=== PATIENT | female | born 1965 ===

== ENCOUNTER 2018-05-17 18:40 | Emergency (ER) | payer MEDICAID ==
[2018-05-17 18:57] VITALS: O2SAT 99
--- NOTE | 2018-05-17 19:19 | ED PDOC ---
Lower Extremity Pain/Injury Time Seen by Provider: 05/17/18 19:17 Chief Complaint (Nursing): Lower Extremity Problem/Injury Chief Complaint (Provider): Lower Extremity Problem/Injury History Per: Patient, Family (daughter and ) History/Exam Limitations: no limitations Onset/Duration Of Symptoms: Days (x 1 month ) Current Symptoms Are (Timing): Still Present Additional Complaint(s): 52 year old female with right leg pain for the last month. Patient reports she saw her PMD, Dr. Herring for the same symptoms. He gave her prescriptions for an x-ray and MRI which she was not able to fill. Pt requesting Xray today so that she can be approved for her MRI. Reports that she is using a cane to ambulate. 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 She has tried Bengay and Percocet without relief. Her last dose of Percocet was today 10 am. Otherwise denies falls, trauma, back pain, chest pain, numbness, weakness, paresthesias. PMD: Dr. Herring Past Medical History Reviewed: Historical Data, Nursing Documentation, Vital Signs Vital Signs: Last Vital Signs Temp 98.3 F 05/17/18 18:54 Pulse 84 05/17/18 18:54 Resp 18 05/17/18 18:54 BP 139/88 05/17/18 18:54 Pulse Ox 99 05/17/18 18:54 - Medical History PMH: Anxiety, Arthritis (left foot plantar pain), Hyperthyroidism Denies: Chronic Kidney Disease - Surgical History Surgical History: No Surg Hx - Family History Family History: States: Unknown Family Hx - Home Medications Home Medications: Ambulatory Orders Medication Instructions Recorded Alprazolam [Xanax] 0.25 mg PO TID 04/24/15 Oxycodone HCl/Acetaminophen 5 - 325 mg PO Q6 PRN 04/24/15 [Percocet 325 mg-5 mg] Lidocaine 5% [Lidoderm] 1 ea TD Q12H PRN #10 patch 05/17/18 Naproxen 500 mg PO DAILY PRN #30 tablet 05/17/18 - Allergies Allergies/Adverse Reactions: Allergies Allergy/AdvReac Type Severity Reaction Status Date / Time No Known Allergies Allergy Verified 02/04/17 12:43 Review of Systems ROS Statement: Except As Marked, All Systems Reviewed And Found Negative Constitutional: Negative for: Fever, Chills Eyes: Negative for: Vision Change Cardiovascular: Negative for: Chest Pain Respiratory: Negative for: Cough, Shortness of Breath Gastrointestinal: Negative for: Nausea, Vomiting, Abdominal Pain Genitourinary Female: Negative for: Dysuria, Frequency Musculoskeletal: Positive for: Leg Pain (posterior right knee pain). Negative for: Neck Pain, Back Pain Neurological: Negative for: Weakness, Numbness, Headache, Dizziness Physical Exam - Reviewed Nursing Documentation Reviewed: Yes Vital Signs Reviewed: Yes - Physical Exam Appears: Positive for: Non-toxic Head Exam: Positive for: ATRAUMATIC, NORMAL INSPECTION, NORMOCEPHALIC Skin: Positive for: Normal Color, Warm, Dry Eye Exam: Positive for: EOMI, Normal appearance, PERRL Neck: Positive for: Normal, Painless ROM Cardiovascular/Chest: Positive for: Regular Rate, Rhythm. Negative for: Murmur Respiratory: Positive for: Normal Breath Sounds. Negative for: Respiratory Distress Pulses-Dorsalis Pedis (L): 2+ Pulses-Dorsalis Pedis (R): 2+ Back: Positive for: Normal Inspection Extremity: Positive for: Tenderness (tenderness to the lateral joint line and popliteal fossa of right knee), Capillary Refill (<2s), Other (decreased ROM at right knee secondary to pain; neurovascularly intact). Negative for: Normal ROM, Calf Tenderness, Swelling (or redness) Neurologic/Psych: Positive for: Alert, Oriented. Negative for: Motor/Sensory Deficits - ECG ECG: Positive for: Interpreted By Me, Viewed By Me ECG Rhythm: Positive for: Normal QRS, Sinus Rhythm (normal ) Interpretation Of ECG: normal intervals, no ST elevation or other signs of ischemia Rate: 86 O2 Sat by Pulse Oximetry: 99 (RA) Pulse Ox Interpretation: Normal Medical Decision Making Medical Decision Makin:18 --Toradol 60 mg IM --Right knee x-ray --Right leg venous duplex Right Knee XR normal as read by me and Dr. Duval Pt reports decreased pain after medication. 19:25 Ultrasound will be called in for venous duplex, wait time approximately 1 hour. Patient and family willing to wait. 21:30 Duplex study negative for DVT. Wrapped right knee in MARLON bandage after lidoderm patch applied. Patient given disc with right knee XR. Plan of care discussed with patient, and strict instructions given regarding prescriptions, importance of follow up, and signs to return to Emergency D epartment, to include worsening pain, numbness, paresthesias, or any other new/worsening symptoms. Patient verbalizes understanding of discussion. Patient A&Ox3, stable for discharge home. Impression: Chronic Knee Pain Scribe Attestation: Documented by Kathleen Wolf, acting as a scribe for Sita Camarena PA-C Provider Scribe Attestation: All medical record entries made by the Scribe were at my direction and personally dictated by me. I have reviewed the chart and agree that the record accurately reflects my personal performance of the history, physical exam, medical decision making, and the department course for this patient. I have also personally directed, reviewed, and agree with the discharge instructions and disposition. Disposition - Clinical Impression Clinical Impression: Knee pain Counseled Patient/Family Regarding: Studies Performed, Diagnosis, Need For Followup, Rx Given - Disposition Referrals: Robert Torrez MD [Staff Provider] - Derian Herring MD [Family Provider] - Disposition: Routine/Home Disposition Time: 21:30 Condition: IMPROVED Additional Instructions: Almohadillas trmicas para el dolor. Mantener la rodilla comprimida en el vendaje MARLON Lidoderm parches 12 horas en, 12 horas de descanso Naproxeno girma vez al da segn sea necesario para el dolor. Seguimiento con el mdico de mayrara segn lo programado 19/05/18 Seguimiento con mdico ortopdico dentro de 2 soni. Volver a la cruzito de emergencias para los sntomas nuevos / que empeoran Prescriptions: Lidocaine 5% [Lidoderm] 1 ea TD Q12H PRN #10 patch PRN Reason: Pain, Moderate (4-7) Naproxen 500 mg PO DAILY PRN #30 tablet PRN Reason: Pain, Moderate (4-7) Instructions: Chronic Knee Pain (DC) Forms: [facility] (Bulgarian), [facility] ED School/Work Excuse Print Language: VIETNAMESE
[2018-05-17] MEDS ORDERED: Lidocaine 5% Patch TD STA (21:42)
[2018-05-17] MEDS ORDERED: Lidocaine 5% Patch TD ONE (21:50)
[2018-05-17 21:55] VITALS: BP 134/81; RESP 15; TEMP 97.9
--- NOTE | 2018-05-18 08:13 | RAD ---
Date of service: 05/17/2018 PROCEDURE: Right Knee Radiographs. HISTORY: knee pain COMPARISON: None. FINDINGS: No acute fracture or destructive bony lesion identified. JOINTS: Normal. No osteoarthritis. JOINT EFFUSION: None. OTHER FINDINGS: None. IMPRESSION: Normal radiographs of the right knee.
--- NOTE | 2018-05-18 10:34 | US ---
Date of service: 05/17/2018 PROCEDURE: Right lower extremity venous duplex Doppler. HISTORY: lower leg pain, swelling COMPARISON: None available. TECHNIQUE: Grayscale and duplex Doppler ultrasonography was performed in evaluation of the right lower extremity major deep veins including but not limited to graded compression and augmentation maneuvers. FINDINGS: Good compressibility, augmentation and normal phasic blood flow are identified at the right common and superficial femoral as well as popliteal veins. Flow is identified in the posterior tibial vein as well. OTHER FINDINGS: None. IMPRESSION: No sonographic evidence of deep venous thrombosis in the right lower extremity. Concordant preliminary report from [facility], 05/17/2018.
[2018-05-18 11:30] VITALS: PULSE 86
== END 2018-05-17 21:55 | disposition home or self-care (01) ==
LOC: H.ER 18:40
DX: M25.561 Pain in right knee (principal); E05.90 Thyrotoxicosis, unspecified without thyrotoxic crisis or storm; G89.29 Other chronic pain; F41.9 Anxiety disorder, unspecified
CPT/HCPCS: 73562; 93971; 96372; 99283; J1885